=== PATIENT | female | born 1945 | race Caucasian/White ===

== ENCOUNTER → 2017-02-28 | Outpatient (CLI) | payer MEDICARE ==
[~2017-02-28] MED LIST: AMLO5TAB2 PO; ASPI-496 PO; CHOL20002 PO; CILO100T17 PO; CITA20TA9 PO; CYCL-259 PO; FLUT1DIS3 INH; HYDR-3240 PO; LEVO150T5 PO; LORA10TA75 PO; LORC10TA PO; LOSA100T6 PO; MONT10TA6 PO; POTA10TA11 PO; TEMA15CA PO; TIOT18CA INH; TRIA1TAB5 PO
== END ==
LOC: CFH 10:57
PROVIDERS: ATTEND Family Medicine
DX: Z12.31 Encounter for screening mammogram for malignant neoplasm of breast (principal)
CPT/HCPCS: 77067

== ENCOUNTER → 2017-08-25 | Outpatient (CLI) | payer MEDICARE | END | disposition home or self-care (01) | LOC: CVU 14:52 | PROVIDERS: ATTEND Surgery | DX: I65.23 Occlusion and stenosis of bilateral carotid arteries (principal); I10 Essential (primary) hypertension; E78.5 Hyperlipidemia, unspecified; Z72.0 Tobacco use | CPT/HCPCS: 93880 ==